=== PATIENT | male | born 1985 ===

== ENCOUNTER 2020-09-12 19:02 | Emergency (ER) | payer OTHER ==
[~2020-09-12] VITALS: Ht 182.9 cm; Wt 156.5 kg
[2020-09-12] MEDS ORDERED: TAMS0.4C PO (21:30)
[2020-09-12] MEDS ORDERED: CIPRO500 MG PO (21:30)
[2020-09-12] MEDS ORDERED: KETO10TA2 PO (21:30)
== END 2020-09-12 21:38 | disposition home or self-care (01) ==
LOC: ER 19:02
DX: N20.1 Calculus of ureter (principal)